=== PATIENT | female | born 1975 | race Hispanic/Latino ===

== ENCOUNTER 2022-09-19 16:10 | Emergency (ER) | payer OTHER ==
[~2022-09-19] VITALS: Ht 152.4 cm; Wt 61.2 kg
[2022-09-19] MEDS ORDERED: ACYCLOVIR 800 MG TABLET PO ONE (17:00)
[2022-09-19 18:52] VITALS: BP 147/92
[2022-09-19] MEDS ORDERED: ACYC-138 PO (19:14)
== END 2022-09-19 19:26 | disposition home or self-care (01) ==
LOC: EDH 16:10
DX: B02.9 Zoster without complications (principal); Z88.8 Allergy status to other drugs, medicaments and biological substances; Z88.1 Allergy status to other antibiotic agents